=== PATIENT | female | born 1965 | race Caucasian/White ===

== ENCOUNTER → 2023-09-21 12:52 | Outpatient (REF) | payer BC, SELFPAY | LOC: WDC 12:52 | PROVIDERS: ATTENDING PHYSICIAN Obstetrics & Gynecology; FAMILY PHYSICIAN Family Medicine | DX: R92.2 Inconclusive mammogram (principal); Z80.3 Family history of malignant neoplasm of breast | CPT/HCPCS: 76641 ==

== ENCOUNTER 2023-12-03 13:07 | Emergency (ER) | payer BC, SELFPAY ==
[2023-12-03 13:08] VITALS: BP 139/89
[2023-12-03 15:01] LABS: % Basophils 0.6 % (0-2); % Eosinophils 1.1 % (0-6); % Immature Granulocytes 0.2 % (0-0.5); % Lymphocytes 25.2 % (20.5-51.1); % Monocytes 14.2 % (1.7-9.3); % Neutrophils 58.7 % (42.2-75.2); Absolute Eosinophils 0.1 10^3/uL (0-0.7); Absolute Lymphocytes 1.2 10^3/uL (1.2-3.4); Absolute Monocytes 0.7 10^3/uL (0.1-0.6); Absolute Neutrophils 2.7 10^3/uL (1.4-6.5); Hematocrit 35.5 % (37.0-47.0); Hemoglobin 12.9 g/dL (12.0-16.0); Mean Corp Hgb Conc. 36.3 g/dL (33.0-37.0); Mean Corpuscular Hgb 32.4 pg (27.0-31.0); Mean Corpuscular Volume 89.2 fL (81.0-99.0); Mean Platelet Volume 10.5 fL (7.4-10.4); Nucleated Red Blood Cells % 0 %; Platelet Count 214 10^3/uL (130-400); Red Blood Cell Count 3.98 10^6/uL (4.20-5.40); Red Cell Dist. Width 11.7 % (11.5-14.5); White Blood Cell Count 4.6 10^3/uL (4.8-10.8)
--- NOTE | 2023-12-03 15:10 | ED.SKININJ ---
HPI-Injury
General
Chief Complaint: Skin Problem
Source: patient
Exam Limitations: none
Time Seen by Provider: 12/03/23 14:05
Nursing documentation reviewed up to this point in time: agreed with
Travel History
Have you had any contact with someone who has COVID-19?: No
Do you have any symptoms of coronavirus? Fever > 100 degrees, chills, cough, shortness of breath, sore throat, loss of taste or smell, muscle aches, or headache?: No
History of Present Illness-Injury
Initial Injury comments:
58-year-old female developed a tiny bubble on the left arm antecubital area after weeding in her garden 5 days ago 2 days ago the area became more blistery and red in crease of arm and over the past 2 days pink warm skin surrounding the blisters and
spread quickly up and down her arm. She saw her PCP yesterday and was started on doxycycline of which she has had 3 doses. She denies fever, felt chilled yesterday. Denies nausea or vomiting. She is scheduled to go to [facility] in 3 days
Past History
Past History
ED Past Medical History: Cancer (Cervical) and Other (Subdural hematoma in 1992)
ED Past Surgical History: Brain (Subdural hematoma) and Gynecological (Cervical cancer)
Social History
Tobacco: Non-smoker
Alcohol: None
Personal:
Living: with family
Employment: Employed (Self-employed)
Family History
Family History: Other (Noncontributory)
Review of Systems
Review of Systems
Allergies reviewed?: Yes
All Other Systems: ROS reviewed and negative except as documented in HPI and ROS
Constitutional: Denies fever or chills
Respiratory: Denies trouble breathing
Cardiac: Denies chest pain
ABD/GI: Denies abdominal pain or nausea
Musculoskeletal: Reports no symptoms
Skin: Reports itching and rash (Anterior left arm)
Neurological: Reports no symptoms
Phy Exam
Physical Exam
Physical Exam:
GENERAL: No acute distress. A&Ox3.
CONSTITUTIONAL: Afebrile.
RESPIRATORY: Regular respirations, nonlabored, lungs clear.
CARDIOVASCULAR: Regular rate and rhythm, no murmurs, no rubs.
GI: Soft, nontender, normal BS
MUSCULOSKELETAL: Moves with ease. Well perfused.
SKIN: Warm, dry, pink. Left antecubital crease with 2 x 6 cm red raised blisters with 14 x 15 cm surrounding erythema
PSYCH: Normal mood and affect. Well kept, interactive and appropriate
NEUROLOGIC: Awake, alert and oriented. No focal neurological deficits
Course
Orders/Labs/Results
Orders:
Orders
12/03/23 14:47
Electrocardiogram (*1) Urgent
Reason for Study: Other
Other Reason for Exam: Possible Sepsis
Cardiac Monitoring- Treatment ONCE
EKG- Treatment ONCE
IV Insert/Care/Rem.- Treatment PRN
O2 Therapy [RESP] Urgent
Titrate/Wean O2 to maintain O2 sat greater than (%): 93
Special Instructions: TO MAINTAIN CONTINUOUS O2 SATS > OR = 93%
Pulse Ox/cont/shift [RESP] Urgent
Quantity: 1
Special Instructions: CONTINUOUS
12/03/23 14:54
Complete Blood Count/With Diff Urgent
Comprehensive Metabolic Panel Urgent
Lactic Acid Q4H
Comment: ON ICE, CANCEL 2ND ORDER IF FIRST LACTIC ACID LEVEL <2
Blood Culture Q30M
ESTER Source: Blood/Venous
Specimen Description:
Comment: FROM 2 SEPARATE SITES
12/03/23 15:34
Urinalysis Reflex To Culture Urgent
Date Specimen was Collected: 12/03/23
Time Specimen was Collected: 14:47
Urine Microscopic Reflex Cult Urgent
Blood Culture Q30M
ESTER Source: Blood/Venous
Specimen Description:
Comment: FROM 2 SEPARATE SITES
12/03/23 16:01
Clindamycin HCl [Cleocin] 300 mg PO NOW STA
Abnormal Lab Results
12/03/23 12/03/23
14:54 15:34
WBC 4.6 L 10^3/uL
(4.8-10.8)
RBC 3.98 L 10^6/uL
(4.20-5.40)
Hct 35.5 L %
(37.0-47.0)
MCH 32.4 H pg
(27.0-31.0)
MPV 10.5 H fL
(7.4-10.4)
Absolute Monos (auto) 0.7 H 10^3/uL
(0.1-0.6)
Monocytes % 14.2 H %
(1.7-9.3)
Glucose 103 H mg/dl
(70-99)
Urine Ketones Trace A
(Negative)
Ur Occult Blood Reflex 2+ A
(Negative)
Urine RBC 11-15 A /HPF
(0-2)
12/03/23 14:54
12/03/23 14:54
Vital Signs
Initial and Last Documented VS:
Initial Vital Signs
Temp Pulse Resp BP Pulse Ox
98.5 F 65 16 139/89 98
12/03/23 13:08 12/03/23 13:08 12/03/23 13:08 12/03/23 13:08 12/03/23 13:08
Last Documented Vital Signs
Temp Pulse Resp BP Pulse Ox
98.5 F 65 16 127/98 98
12/03/23 13:08 12/03/23 13:08 12/03/23 13:08 12/03/23 16:00 12/03/23 16:00
[employer] Supervisor consulted with Physician
Branch Log[employer] Supervisor consulted with physician?: Yes
Name of Physician Consulted: Jerry
MDM/Problems Addressed
Differential Diagnosis Includes:
cellulitis, poison [place]
MDM/Problems Addressed:
58-year-old female developed a tiny bubble on the left arm antecubital area after weeding in her garden 5 days ago 2 days ago the area became more blistery and red in crease of arm and over the past 2 days pink warm skin surrounding the blisters and
spread quickly up and down her arm. She saw her PCP yesterday and was started on doxycycline of which she has had 3 doses. She denies fever, felt chilled yesterday. Denies nausea or vomiting. She is scheduled to go to [facility] in 3 days
The left antecubital rash is consistent with a Rhus dermatitis with surrounding cellulitis 15 x 14 cm area.
CBC, CMP with no clinically significant abnormality
Lactic normal
Patient with localized contact dermatitis surrounding cellulitis, has only had 3 doses of her doxycycline
With normal labs, no fever, no systemic symptoms, informed patient to continue the doxycycline, keep her arm elevated for the next 2 days is much as she can
Discussed with Dr. Edwards, antibiotic changed to Clindamycin for better strep coverage.
After discussing normal labs, Pt satisfied with plan
*Critical Care Note
Total Time (30-74mins, 75-104mins- exclusive of procedures): Not Applicable
ED Attending Note
-
Portions of this chart may have been created with voice recognition software.� Occasional wrong word or��sound alike� substitutions may have occurred due to the inherent limitations of voice recognition software.
Discharge Plan
Departure
Patient Disposition: Home (Routine Discharge)
Date of Disposition: 12/03/23
Time of Disposition: 15:42
Patient with high blood pressure during this ER visit?: No
Condition: Good
Discharge Problem:
Rhus dermatitis, Cellulitis of left arm
Instructions: Cellulitis (Skin Infection), Adult (DC), Poison [place], Poison [place], Poison [place] ED
Prescriptions:
New
clindamycin HCl 300 mg capsule
300 mg PO TID Qty: 30 0RF
No Action
lysine 1,000 MG tablet
1,000 mg PO DAILY
ondansetron 4 MG tablet,disintegrating
4 mg PO QIDPRN PRN (Reason: nausea/vomiting) Qty: 20 0RF
Referrals:
Sherri Grewal, DO [Family Provider] - As needed
Activity Restrictions/Additional Instructions:
As we discussed, keep your arm elevated to the level of your heart are slightly higher as much as you can in the next 2 days.
Your blood work is normal, no sign of significant infection needing different antibiotics. We will switch your antibiotic to Clindamycin for better strep coverage. Sent prescription to your pharmacy.
It is not unusual for symptoms to worsen slightly before they start to improve when started on an antibiotic
See your doctor in 2-3 days if not improving by then.
Return here if you develop fever, vomiting, the red area spreads more than 2 inches in any direction or feeling sicker in any way.
I will be working the next 3 days, feel free to call me or stop by for a quick look if needed.
Interventions
Interventions:
*Risk Screen - Suicide Last Done: 12/03/23 14:45
*General Assessment Last Done: 12/03/23 14:40
*Neglect/Abuse Screening Last Done: 12/03/23 14:40
*ED COVID-19 Vaccine History Last Done: 12/03/23 13:08
*Nursing Disposition Last Done: 12/03/23 16:28
ED-Skin Assessment Last Done: 12/03/23 16:18
Discharge Date and Time
Discharge Date/Time: 12/03/23 16:29
Print Language: CITIZEN OF [place]
[2023-12-03 15:15] LABS: Lactic Acid 0.7 mmol/L (0.7-2.0)
[2023-12-03 15:18] LABS: ALT (SGPT) 13 U/L (0-35); AST (SGOT) 29 U/L (14-36); Albumin 4.3 g/dl (3.5-5.0); Alkaline Phosphatase 75 U/L (38-126); Blood Urea Nitrogen 7 mg/dl (7-17); Calcium 9.3 mg/dl (8.4-10.2); Carbon Dioxide 27 mmol/L (22-30); Chloride 101 mmol/L (98-107); Glucose 103 mg/dl (70-99); Potassium 4.3 mmol/L (3.5-5.1); Sodium 136 mmol/L (135-145); Total Bilirubin 0.6 mg/dl (0.2-1.3); Total Protein 6.8 g/dl (6.3-8.2); eGFR > 60.00
[2023-12-03 15:33] VITALS: BP 113/83
[2023-12-03 15:50] LABS: Urine Albumin Negative (Neg - Trace); Urine Bilirubin Negative (Negative); Urine Character Clear (Clear); Urine Color Straw; Urine Glucose Negative (Negative); Urine Ketone Trace (Negative); Urine Leukocyte Negative (Negative); Urine Nitrite Negative (Negative); Urine Occult Blood 2+ (Negative); Urine Urobilinogen Negative (Neg - 1+)
[2023-12-03 16:00] VITALS: BP 127/98
[2023-12-03] MEDS: CLEOCIN 300 MG PO (16:11)
[2023-12-03 16:40] LABS: Urine White Cell 0-2 /HPF (0-5)
== END 2023-12-03 16:29 | disposition home or self-care (01) ==
LOC: EMR 13:07
PROVIDERS: Registered Nurse; EMERGENCY PHYSICIAN Emergency Medicine; FAMILY PHYSICIAN Family Medicine
DX: L03.114 Cellulitis of left upper limb (principal); L23.7 Allergic contact dermatitis due to plants, except food; Z85.41 Personal history of malignant neoplasm of cervix uteri; Z88.5 Allergy status to narcotic agent; Z88.0 Allergy status to penicillin
CPT/HCPCS: 99283; 94760; 80053; 81003; 81015; 83605; 85025; 87040; 93005

== ENCOUNTER → 2024-05-14 13:27 | Outpatient (REF) | payer BC, SELFPAY | LOC: WDC 13:27 | PROVIDERS: ATTENDING PHYSICIAN Obstetrics & Gynecology; FAMILY PHYSICIAN Family Medicine | DX: Z12.31 Encounter for screening mammogram for malignant neoplasm of breast (principal) | CPT/HCPCS: 77063; 77067 ==

== ENCOUNTER → 2024-11-27 12:32 | Outpatient (REF) | payer BC, SELFPAY | LOC: WDC 12:32 | PROVIDERS: ATTENDING PHYSICIAN Obstetrics & Gynecology; FAMILY PHYSICIAN Family Medicine | DX: D25.9 Leiomyoma of uterus, unspecified (principal); Z80.41 Family history of malignant neoplasm of ovary; R92.30 Dense breasts, unspecified; Z80.3 Family history of malignant neoplasm of breast | CPT/HCPCS: 76641; 76830; 76856 ==

== ENCOUNTER 2025-05-03 06:24 | Day surgery (SDC) | payer BC, SELFPAY | END 2025-05-03 11:09 | disposition home or self-care (01) | LOC: GI 06:24 | PROVIDERS: ATTENDING PHYSICIAN Student in an Organized Health Care Education/Training Program | DX: R10.13 Epigastric pain (principal); E53.8 Deficiency of other specified B group vitamins; K44.9 Diaphragmatic hernia without obstruction or gangrene; Z87.11 Personal history of peptic ulcer disease; K31.89 Other diseases of stomach and duodenum | CPT/HCPCS: 43239; 88305; 88342 ==

== ENCOUNTER → 2025-05-16 11:26 | Outpatient (REF) | payer BC, SELFPAY | LOC: RAD 11:26 | PROVIDERS: ATTENDING PHYSICIAN Student in an Organized Health Care Education/Training Program; FAMILY PHYSICIAN Family Medicine | DX: R10.13 Epigastric pain (principal) | CPT/HCPCS: 74177; Q9967 ==